=== PATIENT | female | born 1975 | race African-American/Black ===

== ENCOUNTER 2022-10-28 11:44 | Observation (INO) | payer BC ==
[~2022-10-28 11:44] MED LIST: Iopamidol-370 76% 500 ML MDV (1 ML CHARGE) ONE
[2022-10-28 12:18] LABS: #Basophils 0.1 thou/uL (0.0-0.2); #Eosinphils 0.1 thou/uL (0.0-0.7); #Monocytes 0.5 thou/uL (0.11-0.59); #Neutrophils 4.4 thou/uL (1.40-6.50); %Basophils 0.9 % (0.0-1.0); %Eosinophils 1.5 % (0.0-10.0); %Lymphocytes 33.1 % (21.0-51.0); %Neutrophils 58.2 % (42.0-75.0); Hemoglobin 14.8 g/dL (12.0-16.0); Mean Corpuscular HGB CONC 33.1 g/dL (32.0-36.0); Mean Corpuscular Hemoglobin 27.2 pg (27.0-31.0); Mean Corpuscular Volume 82.2 fl (78.0-98.0); Mean Platelet Volume 8.5 fL (7.4-10.4); Platelet Count 365 10x3/uL (130-400); RBC Distribution Width 13.9 % (11.5-14.5); Red Blood Cell (RBC) Count 5.44 mill/uL (4.20-5.40); White Blood Cell (WBC) Count 7.5 10x3/uL (4.8-10.8)
[2022-10-28 12:30] LABS: ALT (SGPT) 14 U/L (8-55); AST (SGOT) 18 U/L (5-34); Albumin 4.5 g/dL (3.5-5.0); Alkaline Phosphatase 46 U/L (40-110); Anion Gap 15 mmol/L (10-20); BUN (Urea Nitrogen) 12 mg/dL (7.0-18.7); Bilirubin, Total 0.4 mg/dL (0.2-1.2); Calc. Creatinine Clearance 0 mL/min (70-130); Calcium 10.3 mg/dL (7.8-10.44); Carbon Dioxide 22 mmol/L (22-29); Chloride 103 mmol/L (98-107); Estimated GFR 89; Globulin 3.3 g/dL (2.4-3.5); Glucose 115 mg/dL (70-105); Potassium 3.3 mmol/L (3.5-5.1); Protein, Total 7.8 g/dL (6.0-8.3); Sodium 137 mmol/L (136-145)
[2022-10-28 12:32] LABS: PTT 29.3 sec (22.9-36.1); Prothrombin Time 14.2 sec (12.0-14.7)
[2022-10-28 12:35] LABS: INR-International Normal Ratio 1.1
[2022-10-28] MEDS ORDERED: Aspirin Chewable 81 MG TAB ONE (12:36)
[2022-10-28] MEDS ORDERED: hydrALAZINE 20 MG/ML VIAL SLOW IVP PRN (13:48)
[2022-10-28] MEDS ORDERED: Lorazepam 2 MG/ML VIAL SLOW IVP SCH (14:15)
[2022-10-28] MEDS ORDERED: LORazepam 2 MG/ML SYR.(CARPUJECT) ONE (14:18)
[2022-10-28 16:33] VITALS: BMI 30.9
[2022-10-28] MEDS ORDERED: Potassium Chloride 20 MEQ TAB PO SCH (16:45)
[2022-10-28] MEDS: Atorvastatin Calcium 40 MG TAB PO SCH ×2 (21:07→21:15)
[2022-10-29 06:10] LABS: Cardiac Risk 4.1 (Less than 4.5)
[2022-10-29] MEDS ORDERED: Aspirin 325 mg Enteric Coated Tablet PO SCH (09:00)
[2022-10-29 09:38] LABS: Potassium 4.3 mmol/L (3.5-5.1)
[2022-10-29] MEDS ORDERED: Lorazepam 1 MG TAB PO SCH (10:45)
[2022-10-29 12:22] VITALS: TEMP 97.7
[2022-10-29] MEDS ORDERED: Losartan 25 MG TAB PO SCH (12:30)
[2022-10-29] MEDS ORDERED: Amlodipine 5 MG TAB PO SCH (12:30)
[2022-10-29 13:08] VITALS: BP 119/76
[2022-10-29 14:24] LABS: Hemoglobin A1c 5.5 % (4.0-6.0)
[2022-10-30] MEDS ORDERED: Losartan 25 MG TAB PO SCH ×2 (09:00→12:19)
[2022-10-30] MEDS ORDERED: Amlodipine 5 MG TAB PO SCH (09:00)
== END 2022-10-29 17:40 | disposition home or self-care (01) ==
LOC: ERS 11:44 → 2SW 13:44 → OBSVTOIN 10-29 13:44 → INTOOBSV 10-29 13:44
PROVIDERS: ADMIT Internal Medicine; ATTEND Internal Medicine
DX: R20.0 Anesthesia of skin (principal); I10 Essential (primary) hypertension; E78.00 Pure hypercholesterolemia, unspecified; Z79.82 Long term (current) use of aspirin; Z79.01 Long term (current) use of anticoagulants; Z79.899 Other long term (current) drug therapy; Z90.710 Acquired absence of both cervix and uterus
CPT/HCPCS: 36415; 70450; 70496; 70498; 70551; 80053; 80061; 83036; 84132; 84484; 85025; 85610; 85730; 93005; G0378; J2060; Q9967